=== PATIENT | male | born 1995 | race Caucasian/White ===

== ENCOUNTER 2020-10-29 11:53 | Emergency (ER) | payer BC ==
[2020-10-29 11:57] VITALS: RESP 18
--- NOTE | 2020-10-29 12:31 | ED ---
General Adult HPI - General Chief complaint: Allergic Reaction Stated complaint: hives Time Seen by Provider: 10/29/20 12:15 Source: patient, RN notes reviewed Mode of arrival: ambulatory Limitations: no limitations - History of Present Illness Initial comments: This a 25-year-old male presents emergency Department chief complaint of hives. Patient states he's been doing this last few days. Patient was given prednisone Pepcid and Benadryl. Patient states when he takes omeprazole does get better. Patient states he felt like is having reactions to the Pepcid. Patient states that he also had reaction like this in the Past when his has strep throat. Patient complains of mild sore throat no fevers or chills no to respond to breathing. Patient states she's not any new medications. Detergents other than the new medications given by prior hospital. Patient states she has a benign past HISTORY. - Related Data Previous Rx's Medication Instructions Recorded predniSONE [Deltasone] 3 tab PO DAILY #21 tab 09/09/16 valACYclovir HCL [Valtrex] 1 tab PO TID #21 tablet 09/09/16 Allergies Allergy/AdvReac Type Severity Reaction Status Date / Time No Known Allergies Allergy Verified 10/29/20 11:57 Review of Systems ROS Statement: Those systems with pertinent positive or pertinent negative responses have been documented in the HPI. ROS Other: All systems not noted in ROS Statement are negative. Past Medical History Past Medical History: No Reported History History of Any Multi-Drug Resistant Organisms: None Reported Past Surgical History: No Surgical Hx Reported Past Psychological History: Anxiety, Depression Smoking Status: Never smoker Past Alcohol Use History: Occasional Past Drug Use History: None Reported General Exam Limitations: no limitations General appearance: alert, in no apparent distress Head exam: Present: atraumatic, normocephalic, normal inspection Eye exam: Present: normal appearance, PERRL, EOMI. Absent: scleral icterus, conjunctival injection, periorbital swelling ENT exam: Present: mucous membranes moist, TM's normal bilaterally, normal external ear exam. Absent: normal oropharynx (Minimal erythema throat) Neck exam: Present: normal inspection, full ROM. Absent: tenderness, meningismus, lymphadenopathy Respiratory exam: Present: normal lung sounds bilaterally. Absent: respiratory distress, wheezes, rales, rhonchi, stridor Cardiovascular Exam: Present: regular rate, normal rhythm, normal heart sounds. Absent: systolic murmur, diastolic murmur, rubs, gallop, clicks Neurological exam: Present: alert, oriented X3 Skin exam: Present: warm, dry, intact, normal color, urticaria (Faint urticaria to the elbow, right side of the abdomen, Mild Redness of Left Cheek). Absent: rash Course Vital Signs 10/29/20 11:55 Temperature 98.7 F Pulse Rate 77 Respiratory 18 Rate Blood Pressure 143/89 O2 Sat by Pulse 99 Oximetry Medical Decision Making - Medical Decision Making 25 show male presented for hives. This is been on and off for last 3 days. Patient is concerned about possible strep. Strep is negative. Patient has no clinical signs. Patient be discharged in stable condition. - Lab Data Lab Results 10/29/20 Range/Units 12:29 Group A Strep Rapid Negative (Negative) Disposition Clinical Impression: Urticaria Disposition: HOME SELF-CARE Condition: Stable Instructions (If sedation given, give patient instructions): Urticaria (ED) Additional Instructions: Please return to the Emergency Department if symptoms worsen or any other concerns. Is patient prescribed a controlled substance at d/c from ED?: No Referrals: None,Stated [Primary Care Provider] - 1-2 days Time of Disposition: 13:33
[2020-10-29 13:46] VITALS: BP 135/83; PULSE 72; TEMP 98.2
== END 2020-10-29 13:46 | disposition home or self-care (01) ==
LOC: EC 11:53
DX: L50.9 Urticaria, unspecified (principal)
CPT/HCPCS: 87081; 87430; 99283

== ENCOUNTER 2021-02-05 22:09 | Emergency (ER) | payer BC ==
[2021-02-05 22:21] VITALS: BP 134/82; PULSE 66; RESP 18; TEMP 97.8
[2021-02-05] MEDS ORDERED: FAMOTIDINE 20 MG TAB PO STA (22:38)
[2021-02-05] MEDS ORDERED: dexAMETHasone 2 MG TAB PO STA (22:38)
--- NOTE | 2021-02-05 22:42 | ED ---
Allergic Reaction HPI - General Chief complaint: Allergic Reaction Stated complaint: Poss Allergic Reaction Time Seen by Provider: 02/05/21 22:25 Source: patient Mode of arrival: ambulatory Limitations: no limitations - History of Present Illness Initial Comments: This patient is a 25-year-old man who presents to have evaluation for hives. Patient states that he had an episode like this about 2 months ago, was treated with antihistamines and steroid and it had resolved. He started getting recurrence on Saturday with hives to his trunk and arms. He states that he would take Benadryl and the hives would resolve within the or recurring. The patient states that tonight he had a warm feeling in his neck associated with this and he therefore felt he should have evaluation. He did take Benadryl one hour ago and notes that the symptoms are already little better than they were at home. He also indicates hives to the bilateral arms tonight. No dyspnea, cough, wheezing. No nausea or vomiting. MD Complaint: allergic reaction, hives Onset/Timin -: days(s) Exposure: unknown Symptoms: rash Severity: moderate Treatment Prior to Arrival: benadryl Previous Allergy History: prior ED visit(s) - Related Data Previous Rx's Medication Instructions Recorded predniSONE [Deltasone] 3 tab PO DAILY #21 tab 09/09/16 valACYclovir HCL [Valtrex] 1 tab PO TID #21 tablet 09/09/16 Famotidine [Pepcid] 20 mg PO BID #14 tablet 02/05/21 diphenhydrAMINE [Benadryl] 50 mg PO QID PRN #24 capsule 02/05/21 Allergies Allergy/AdvReac Type Severity Reaction Status Date / Time No Known Allergies Allergy Verified 02/05/21 22:21 Review of Systems ROS Statement: Those systems with pertinent positive or pertinent negative responses have been documented in the HPI. ROS Other: All systems not noted in ROS Statement are negative. Constitutional: Denies: fever, chills, weakness Eyes: Denies: eye discharge ENT: Reports: as per HPI. Denies: throat pain, congestion Respiratory: Denies: cough, dyspnea, wheezes Cardiovascular: Denies: palpitations, edema Gastrointestinal: Denies: abdominal pain, vomiting, diarrhea Skin: Reports: as per HPI, rash, pruritus Neurological: Denies: headache, weakness Past Medical History Past Medical History: No Reported History History of Any Multi-Drug Resistant Organisms: None Reported Past Surgical History: No Surgical Hx Reported Past Psychological History: Anxiety, Depression Smoking Status: Never smoker Past Alcohol Use History: Occasional Past Drug Use History: None Reported General Exam Limitations: no limitations General appearance: alert, in no apparent distress Head exam: Present: atraumatic, normocephalic Eye exam: Present: normal appearance ENT exam: Present: normal oropharynx, mucous membranes moist Neck exam: Present: normal inspection, full ROM. Absent: tenderness Respiratory exam: Present: normal lung sounds bilaterally. Absent: respiratory distress, wheezes, rales, rhonchi, stridor Cardiovascular Exam: Present: regular rate, normal rhythm, normal heart sounds. Absent: systolic murmur, diastolic murmur, rubs, gallop GI/Abdominal exam: Present: soft. Absent: distended, tenderness, guarding, rebound, rigid, mass Neurological exam: Present: alert Skin exam: Present: warm, dry, intact, normal color, urticaria. Absent: petechiae, pallor, mottled Course Vital Signs 02/05/21 22:17 Temperature 97.8 F Pulse Rate 66 Respiratory 18 Rate Blood Pressure 134/82 O2 Sat by Pulse 99 Oximetry Disposition Clinical Impression: Urticaria Disposition: HOME SELF-CARE Condition: Good Instructions (If sedation given, give patient instructions): General Allergic Reaction (ED) Prescriptions: diphenhydrAMINE [Benadryl] 50 mg PO QID PRN #24 capsule PRN Reason: Itching Famotidine [Pepcid] 20 mg PO BID #14 tablet Is patient prescribed a controlled substance at d/c from ED?: No Referrals: Nonstaff,Physician [Primary Care Provider] - 1-2 days Zulma Sullivan MD [STAFF PHYSICIAN] - 1-2 days
== END 2021-02-05 23:28 | disposition home or self-care (01) ==
LOC: EC 22:09
DX: L50.0 Allergic urticaria (principal)
CPT/HCPCS: 99283; J8540

== ENCOUNTER 2023-06-07 04:02 | Emergency (ER) | payer BC, OTHER ==
[2023-06-07 04:10] VITALS: BP 136/84; PULSE 59; RESP 18; TEMP 98.5
[2023-06-07] MEDS ORDERED: dexAMETHasone 2 MG TAB PO STA (04:21)
--- NOTE | 2023-06-07 04:26 | ED ---
General Adult HPI - General Chief complaint: Skin/Abscess/Foreign Body Stated complaint: Hives Time Seen by Provider: 06/07/23 04:11 Source: patient Mode of arrival: ambulatory Limitations: no limitations - History of Present Illness Initial comments: This is a 28-year-old male with a past medical history including previous "ALLERGIES to his own saliva" when he gets strep a presents emergency department for hives. The patient stated that he started to experience hives earlier in the day and stated that it is a precursor to when he gets strep a. The patient stated that he took Benadryl earlier today with some minor relief but stated that the hives were persistent this evening so he came to the emergency department for further evaluation. The patient stated that when this happens CCG positive for strep the following day. The patient denied any sore throat, fevers but did report chills. The patient denied any recent sick contacts. The patient was otherwise resting in bed comfortably. - Related Data Previous Rx's Medication Instructions Recorded predniSONE [Deltasone] 3 tab PO DAILY #21 tab 09/09/16 valACYclovir HCL [Valtrex] 1 tab PO TID #21 tablet 09/09/16 Famotidine [Pepcid] 20 mg PO BID #14 tablet 02/05/21 diphenhydrAMINE [Benadryl] 50 mg PO QID PRN #24 capsule 02/05/21 Allergies Allergy/AdvReac Type Severity Reaction Status Date / Time No Known Allergies Allergy Verified 06/07/23 04:10 Review of Systems ROS Statement: Those systems with pertinent positive or pertinent negative responses have been documented in the HPI. ROS Other: All systems not noted in ROS Statement are negative. Past Medical History Past Medical History: No Reported History History of Any Multi-Drug Resistant Organisms: None Reported Past Surgical History: No Surgical Hx Reported Past Psychological History: Anxiety, Depression Smoking Status: Never smoker Past Alcohol Use History: Occasional Past Drug Use History: Marijuana General Exam Limitations: no limitations General appearance: alert, in no apparent distress Head exam: Present: atraumatic, normocephalic, normal inspection Eye exam: Present: normal appearance, PERRL Pupils: Present: normal accommodation ENT exam: Present: normal exam, normal oropharynx, mucous membranes moist Neck exam: Present: normal inspection, full ROM Respiratory exam: Present: normal lung sounds bilaterally Cardiovascular Exam: Present: regular rate, normal rhythm, normal heart sounds GI/Abdominal exam: Present: soft, normal bowel sounds Extremities exam: Present: normal inspection, full ROM Back exam: Present: normal inspection, full ROM Neurological exam: Present: alert, oriented X3, CN II-XII intact Psychiatric exam: Present: normal affect, normal mood Skin exam: Present: warm, dry, urticaria (Mild urticarial rash noted on the back and B/L upper extremities) Course Vital Signs 06/07/23 04:08 Temperature 98.5 F Pulse Rate 59 L Respiratory 18 Rate Blood Pressure 136/84 O2 Sat by Pulse 98 Oximetry Medical Decision Making - Medical Decision Making Was pt. sent in by a medical professional or institution (, [facility], [employer], urgent care, hospital, or [place] health care facility...) When possible be specific @ -No Did you speak to anyone other than the patient for history (EMS, parent, family, police, friend...)? What history was obtained from this source @ -No Did you review nursing and triage notes (agree or disagree)? Why? @ -I reviewed and agree with nursing and triage notes Were old charts reviewed (outside hosp., previous admission, EMS record, old EKG, old radiological studies, urgent care reports/EKG's, [place] health care facility records)? Report findings @ -No old charts were reviewed Differential Diagnosis (chest pain, altered mental status, abdominal pain women, abdominal pain men, vaginal bleeding, weakness, fever, dyspnea, syncope, headache, dizziness, GI bleed, back pain, seizure, CVA, palpatations, mental health)? @ -ALLERGIC reaction, urticaria, strep pharyngitis EKG interpreted by me (3pts min.). @ -None X-rays interpreted by me (1pt min.). @ -None done CT interpreted by me (1pt min.). @ -None done U/S interpreted by me (1pt. min.). @ -None done What testing was considered but not performed or refused? (CT, X-rays, U/S, labs)? Why? @ -None What meds were considered but not given or refused? Why? @ -None Did you discuss the management of the patient with other professionals (professionals i.e. [facility] Hernandez, TE[employer] WORK[employer], lab, RT, psych nurse, social media developer, senior business development analyst, teacher, parking enforcement officer, case management director)? Give summary @ -No Was smoking cessation discussed for >3mins.? @ -No Was critical care preformed (if so, how long)? @ -No Were there social determinants of health that impacted care today? How? (Homelessness, low income, unemployed, alcoholism, drug addiction, transportation, low edu. Level, literacy, decrease access to med. care, halfway, rehab)? @ -No Was there de-escalation of care discussed even if they declined (Discuss DNR or withdrawal of care, Hospice)? DNR status @ -No What co-morbidities impacted this encounter? (DM, HTN, Smoking, COPD, CAD, Cancer, CVA, ARF, Chemo, Hep., AIDS, mental health diagnosis, sleep apnea, morbid obesity)? @ -None Was patient admitted / discharged? Hospital course, mention meds given and route, prescriptions, significant lab abnormalities, going to OR and other pertinent info. @ -The patient was seen and evaluated in the emergency department. Physical exam, the patient was resting in bed without any acute distress. Vital signs admission were stable. As the patient and his mother described, he usually gets hives as a precursor to his strep pharyngitis. The patient had taken Benadryl already at home and stated that the last time that this has happened he needed amoxicillin. Due to this history, the patient was swabbed for rapid strep. A strep culture was also obtained as the previous episode was negative for a rapid strep but was positive for a culture. The patient also received a dose of Decadron in the emergency department. Rapid strep was negative however the culture was pending at this time. The patient was advised to continue take Benadryl at home and he did not need another dose of Decadron at this time. The patient was advised that if the culture was positive, he would have an antibiotic called in to this pharmacy. The patient was agreeable to this plan and was discharged home in stable condition with his mother. Undiagnosed new problem with uncertain prognosis? @ -No Drug Therapy requiring intensive monitoring for toxicity (Heparin, Nitro, Insulin, Cardizem)? @ -No Were any procedures done? @ -No Diagnosis/symptom? @ -Urticaria, NOS Acute, or Chronic, or Acute on Chronic? @ -Acute Uncomplicated (without systemic symptoms) or Complicated (systemic symptoms)? @ -Uncomplicated Side effects of treatment? @ -No Exacerbation, Progression, or Severe Exacerbation? @ -No Poses a threat to life or bodily function? How? (Chest pain, [place], [place], pneumonia, PE, COPD, DKA, ARF, appy, cholecystitis, CVA, Diverticulitis, Homicidal, Suicidal, threat to staff... and all critical care pts) @ -No - Lab Data Lab Results 06/07/23 Range/Units 04:22 Group A Strep (PCR) NOT DETECTED (Not Detectd) Disposition Clinical Impression: Hives Disposition: HOME SELF-CARE Condition: Stable Instructions (If sedation given, give patient instructions): Urticaria (ED) Is patient prescribed a controlled substance at d/c from ED?: No Referrals: None,Stated [Primary Care Provider] - 1-2 days Time of Disposition: 04:50
== END 2023-06-07 05:16 | disposition home or self-care (01) ==
LOC: EC 04:02
DX: L50.0 Allergic urticaria (principal); F12.90 Cannabis use, unspecified, uncomplicated; Z86.59 Personal history of other mental and behavioral disorders
CPT/HCPCS: 87651; 99283; J8540